=== PATIENT | female | born 1990 | race Caucasian/White ===

== ENCOUNTER 2020-02-05 17:36 | Emergency (ER) | payer OTHER, SELFPAY ==
--- NOTE | ~2020-02-05 | CT_ITS ---
EXAMINATION: CT abdomen pelvis w con EXAM DATE: 02/05/2020 18:57 INDICATION: Abdominal pain. TECHNIQUE: Spiral CT of the abdomen and pelvis was performed following intravenous injection of 100 m L Omnipaque 350. Axial, coronal and sagittal images were reviewed. The dose-length product (DLP) fo r this examination was 1206.78 mGy-cm. The exposure was tailored according to patient size (auto mA exposure control), and iterative reconstruction (ASIR) was used as additional dose reduction techniqu e. There is no prior study for comparison. FINDINGS: The liver, spleen, adrenal glands and pancreas are unremarkable. Gallbladder is unremarkab le. No biliary obstruction. Portal and splenic veins are patent. Kidneys enhance symmetrically. T here is no hydronephrosis. The uterus and ovaries are unremarkable, no adnexal mass. The bladder i s unremarkable. There is no retroperitoneal or pelvic lymphadenopathy. The appendix is normal. The stomach and small bowel are unremarkable. There is expected amount of c olonic stool. No free intraperitoneal gas. The heart is normal in size. There are no pericardial or pleural effusions. The lung bases are unremarkable. There are no significant osseous abnormalit ies identified. IMPRESSION: 1. Unremarkable CT abdomen pelvis examination. Reviewed, dictated and finalized at location A.
[2020-02-05 17:41] VITALS: BP 171/97; PULSE 98; RESP 18; TEMP 36.7; O2SAT 100
--- NOTE | 2020-02-05 18:01 | ED.ABDPAIN ---
HPI - Abdominal Pain General Chief Complaint: Abdominal Pain Stated Complaint: abd pain Time Seen by Provider: 02/05/20 18:00 Source: patient and RN notes reviewed Mode of arrival: ambulatory Limitations: no limitations History of Present Illness HPI narrative: Pt is a 29 y/o female who presents to the ED with c/o intermittent RUQ pain starting roughly 1 week ago. She notes that she was evaluated for her symptoms at her PCP, RAMSEY Jung's office on 02/01/20. Pt states that she received an US of her RUQ during the appointment, which showed no acute abnormalities. She notes that her pain has been intermittent since it first began, but states that her pain worsened earlier today. Pt reports nausea accompanying her pain, but denies any vomiting, diarrhea, fever, or chills. She states that she hasn't taken any pain medications for her symptoms. Pt notes that she has no significant PMHx. MD elicited complaint: abdominal pain Pertinent past history: none Onset (ago): week(s) (1) Pain Consistency: intermittent Location: RUQ Associated symptoms: nausea Related Data Allergies Allergy/AdvReac Type Severity Reaction Status Date / Time No Known Drug Allergies Allergy Unknown Verified 02/05/20 17:44 Review of Systems Review of Systems: All systems reviewed & are unremarkable except as noted in HPI and below Constitutional: Constitutional: Denies chills and Denies fever(s) Gastrointestinal: Gastrointestinal: Reports abdominal pain (RUQ pain), Denies diarrhea, Reports nausea and Denies vomiting PMFSH Past Medical History Medical History Healthy female adult Surgical History Surgical History Hx of section Social History Social History Smoking status: Never smoker Gender identity (if verbalized by the patient): Female Exam Narrative: Exam Narrative: APPEARANCE: No acute distress, nontoxic, resting in bed HEENT: Normocephalic, atraumatic, OMM RESPIRATORY: No respiratory distress, clear to auscultation bilaterally with no rhonchi wheezing or rales CARDIOVASCULAR: RRR s murmur ABDOMINAL: Soft, nondistended, tender palpation epigastric and right upper quadrant, no tenderness left upper quadrant, right lower quadrant left lower quadrant, no rebound or guarding MUSCULOSKELETAl: Moves all extremities. No clubbing, cyanosis or edema. NEURO: Awake and alert. Following commands, speech normal, no focal deficits SKIN:: Warm, dry. Normal Color PSYCHIATRIC: Normal affect/mood Course Course Emergency Course: Patient meets PERC rule criteria and no further testing needs to be performed for pulmonary embolism. Patient states that they are feeling much better at this time. States abdominal pain has improved. Repeat abdominal exam shows the patient's abdomen to be soft with no surgical abdomen present. Discussed with patient results of workup and diagnosis. Discussed need for follow-up with primary care physician, reasons to return to the emergency department in proper use of medication. Patient understands and agrees to current treatment plan Vital Signs Vital signs: Vital Signs Temperature 98.0 F 02/05/20 17:41 Pulse Rate 98 02/05/20 17:41 Respiratory Rate 18 02/05/20 17:41 Blood Pressure 171/97 H 02/05/20 17:41 Pulse Oximetry 100 02/05/20 17:41 Temperature 98.0 F 02/05/20 17:41 Pulse Rate 98 02/05/20 17:41 Respiratory Rate 18 02/05/20 17:41 Blood Pressure 171/97 H 02/05/20 17:41 Pulse Oximetry 100 02/05/20 17:41 MDM - Abdominal Pain MDM Narrative Medical decision making narrative: Patient's abdomen is soft without significant pain or signs of surgical abdomen on serial exams. Lab and x-ray evaluations are reviewed and patient is felt to be a reasonable candidate for outpatient management. Patient was instructed as to limitations of x-ray and laborator
[2020-02-05] MEDS: SODIUM CHLORIDE 0.9% IV 1,000 ML 999 ML IV CONT (18:16)
[2020-02-05] MEDS: ONDANSETRON INJ 4 MG/2 ML VIAL IV PUSH (18:17)
[2020-02-05] MEDS: KETOROLAC 30 MG/ML VIAL (*BKC) IV PUSH (18:17)
[2020-02-05 18:30] LABS: Basophils Absolute Auto 0.1 K/mm3 (0.0-0.1); Basophils Percent Auto 0.9 % (0.2-1.2); Eosinophils Absolute Auto 0.4 K/mm3 (0-0.3); Eosinophils Percent Auto 5.2 % (0-4.4); Hematocrit 42.2 % (37.0-47.0); Hemoglobin 13.9 g/dL (12.0-15.0); Immature Granulocyte Absolute 0.02 K/mm3 (0.00-0.031); Immature Granulocyte Percent A 0.2 % (0-0.5); Lymphocytes Absolute Auto 2.56 K/mm3 (0.9-3.2); Lymphocytes Percent Auto 30.2 % (18.3-44.2); Mean Corpuscular HGB Conc 32.9 g/dl (32-36); Mean Corpuscular Hemoglobin 30.2 pg (26-34); Mean Corpuscular Volume 91.7 fl (80-100); Mean Platelet Volume 9.3 fl (7.4-10.4); Monocytes Absolute Auto 0.6 K/mm3 (0.1-0.6); Monocytes Percent Auto 6.5 % (2.6-8.5); Neutrophils Absolute Auto 4.8 K/mm3 (1.3-6.7); Platelet Count Result 330 k/mm3 (150-375); Red Cell Distribution Width 12.9 % (11.5-14.5); White Blood Count 8.5 K/mm3 (4.5-10.0)
[2020-02-05 18:34] LABS: Add Urine Microscopic? YES; Appearance Urine Clear (Clear); Bacteria Urine Trace /hpf; Bilirubin Urine Negative (Negative); Blood Urine Negative (Negative); Color Urine Yellow (Yellow); Glucose Urine UA Negative (Negative); Ketones Urine Negative (Negative); Leukocyte Esterase Ur Negative LEU/UL (Negative); Mucus Urine Rare /lpf; Nitrate Urine Negative (Negative); Protein Urine Negative (Negative); RBC Urine 0-2 /hpf (0-2); Specific Grav Ur 1.021 (1.001-1.035); Squamous Epithelial Cell Urine Few /hpf (Few); Urobilinogen Urine Negative mg/dL (<2.0); WBC Urine 0-3 /hpf
[2020-02-05 18:41] LABS: Alanine Aminotransferase 18 U/L (4-35); Albumin Level 4.7 g/dL (3.5-5.1); Alkaline Phosphatase 61 U/L (38-126); Aspartate Amino Transferase 24 U/L (14-36); Bilirubin,Total 0.2 mg/dL (0.2-1.3); Blood Urea Nitrogen 13 mg/dL (7-17); Calcium 9.7 mg/dL (8.4-10.2); Carbon Dioxide 26 mmol/L (22-30); Chloride 105 mmol/L (98-107); Estimated CRCL calculation 122 ml/min; Estimated Glomerular Filt Rate > 60; Glucose 97 mg/dL (65-105); Lipase 84 U/L (23-300); Potassium 3.8 mmol/L (3.4-5.0); Sodium 139 mmol/L (137-145)
[2020-02-05 20:09] VITALS: BP 129/90; PULSE 76; RESP 16; TEMP 36.7; O2SAT 100
== END 2020-02-05 20:11 | disposition home or self-care (01) ==
PROVIDERS: Emergency Medicine; Emergency Provider Emergency Medicine; PCP Nurse Practitioner Adult Health
DX: R10.11 Right upper quadrant pain (principal)
CPT/HCPCS: 36415; 74177; 80053; 81001; 81025; 83690; 85025; 96361; 96374; 96375; 99284; J1885; J2405; J7030; Q9967

== ENCOUNTER 2020-06-20 03:09 | Emergency (ER) | payer OTHER, SELFPAY ==
[2020-06-20 03:10] VITALS: BP 146/93; PULSE 113; RESP 15; TEMP 37.6; O2SAT 100
--- NOTE | 2020-06-20 03:16 | ED.ABDPAIN ---
HPI - Abdominal Pain General Chief Complaint: Abdominal Pain Stated Complaint: abd pain Time Seen by Provider: 06/20/20 03:12 History of Present Illness HPI narrative: Severe RUQ abdominal pain for the past few hours. Stabbing in quality. No radiation. Associated with nausea. No vomiting, diarrhea, fever. She has had this pain before. She has had a RUQ US, abdominal CT, and labs which were all normal. Related Data Allergies Allergy/AdvReac Type Severity Reaction Status Date / Time No Known Drug Allergies Allergy Unknown Verified 06/20/20 03:13 Review of Systems Review of Systems: All systems reviewed & are unremarkable except as noted in HPI and below Constitutional: Constitutional: Denies fever(s) Cardiovascular: Cardiovascular: Denies chest pain Respiratory: Respiratory: Denies dyspnea Gastrointestinal: Gastrointestinal: Reports abdominal pain, Denies constipation, Denies diarrhea, Reports nausea and Denies vomiting Genitourinary: Genitourinary: Denies hematuria and Denies dysuria Musculoskeletal: Musculoskeletal: Reports back pain Neurologic: Denies numbness and Denies weakness FORMERLY [facility] Past Medical History Medical History Healthy female adult Surgical History Surgical History Hx of section Social History Social History Smoking status: Never smoker Gender identity (if verbalized by the patient): Female Exam Const: General: healthy appearing, no acute distress and alert Orientation/consciousness: patient oriented x3 HENMT: Head: normal to inspection Neck: Neck: normal visual inspection and no lymphadenopathy Chest: Chest palpation & inspection: no tenderness Resp: Effort & Inspection: normal respiratory effort Auscultation: clear to auscultation bilaterally, no rales, no rhonchi and no wheezes Cardio: Jugular venous distension: no JVD Rate: regular rate Rhythm: regular rhythm Heart sounds: no murmurs GI: Inspection: non-distended GI Palp: Yes Soft to palpation, Yes Tenderness to palpation present (GI) (RUQ), Yes Guarding due to palpation present (GI) and No Rebound tenderness present Skin: General skin exam: normal color Neuro: General: patient oriented x3 and moves all extremities Speech: normal speech Extrem: General: no edema Psych: Appearance: well kempt Affect: normal affect Course Vital Signs Vital signs: Vital Signs Temperature 37.6 C 06/20/20 03:10 Pulse Rate 113 H 06/20/20 03:10 Respiratory Rate 15 06/20/20 03:10 Blood Pressure 146/93 H 06/20/20 03:10 Pulse Oximetry 100 06/20/20 03:10 Temperature 37.6 C 06/20/20 03:10 Pulse Rate 74 06/20/20 04:50 Respiratory Rate 18 06/20/20 04:50 Blood Pressure 127/89 06/20/20 04:50 Pulse Oximetry 98 06/20/20 04:50 MDM - Abdominal Pain MDM Narrative Medical decision making narrative: Chart review reveals completely negative past work-up. I will try symptomatic treatment and reevaluate. Symptoms greatly improved. She will need GI follow-up Medical Records Attestation: I reviewed the patient's medical records. Lab Data Attestation: I reviewed the patient's lab results. Result diagrams: 06/20/20 03:37 06/20/20 03:37 Labs: Lab Results 06/20/20 06/20/20 06/20/20 Range/Units 03:37 03:37 03:39 WBC 7.7 (4.5-10.0) K/mm3 RBC 4.63 (4.2-5.4) M/mm3 Hgb 14.3 (12.0-15.0) g/dL Hct 42.2 (37.0-47.0) % MCV 91.1 (80-100) fl MCH 30.9 (26-34) pg MCHC 33.9 (32-36) g/dl RDW 12.6 (11.5-14.5) % Plt Count 303 (150-375) k/mm3 MPV 9.2 (7.4-10.4) fl Immature Gran % (Auto) 0.3 (0-0.5) % Neut % (Auto) 52.8 (45.5-73.1) % Lymph % (Auto) 35.8 (18.3-44.2) % [place] % (Auto) 6.5 (2.6-8.5) % Eos % (Auto) 4.1 (0-4.4) % Baso % (Auto) 0.5
[2020-06-20] MEDS: DICYCLOMINE HCL INJ 20 MG/2 ML VIAL IM (03:39)
[2020-06-20] MEDS: SODIUM CHLORIDE 0.9% IV 1,000 ML 999 ML IV CONT (03:40)
[2020-06-20 03:45] LABS: Basophils Percent Auto 0.5 % (0.2-1.2); Eosinophils Absolute Auto 0.3 K/mm3 (0-0.3); Eosinophils Percent Auto 4.1 % (0-4.4); Hematocrit 42.2 % (37.0-47.0); Hemoglobin 14.3 g/dL (12.0-15.0); Immature Granulocyte Absolute 0.02 K/mm3 (0.00-0.031); Immature Granulocyte Percent A 0.3 % (0-0.5); Lymphocytes Absolute Auto 2.77 K/mm3 (0.9-3.2); Lymphocytes Percent Auto 35.8 % (18.3-44.2); Mean Corpuscular HGB Conc 33.9 g/dl (32-36); Mean Corpuscular Hemoglobin 30.9 pg (26-34); Mean Corpuscular Volume 91.1 fl (80-100); Mean Platelet Volume 9.2 fl (7.4-10.4); Monocytes Absolute Auto 0.5 K/mm3 (0.1-0.6); Monocytes Percent Auto 6.5 % (2.6-8.5); Neutrophils Absolute Auto 4.1 K/mm3 (1.3-6.7); Neutrophils Percent Auto 52.8 % (45.5-73.1); Platelet Count Result 303 k/mm3 (150-375); Red Blood Count 4.63 M/mm3 (4.2-5.4); Red Cell Distribution Width 12.6 % (11.5-14.5); White Blood Count 7.7 K/mm3 (4.5-10.0)
[2020-06-20 04:02] LABS: Alanine Aminotransferase 17 U/L (4-35); Albumin Level 4.8 g/dL (3.5-5.1); Alkaline Phosphatase 61 U/L (38-126); Anion Gap 6 mmol/L (8-16); Aspartate Amino Transferase 28 U/L (14-36); Bilirubin,Total 0.4 mg/dL (0.2-1.3); Blood Urea Nitrogen 18 mg/dL (7-17); Calcium 9.6 mg/dL (8.4-10.2); Carbon Dioxide 28 mmol/L (22-30); Chloride 104 mmol/L (98-107); Estimated Glomerular Filt Rate > 60; Glucose 96 mg/dL (65-105); Lipase 103 U/L (23-300); Sodium 138 mmol/L (137-145)
[2020-06-20 04:13] LABS: Appearance Urine Clear (Clear); Bilirubin Urine Negative (Negative); Blood Urine Negative (Negative); Color Urine Yellow (Yellow); Glucose Urine UA Negative (Negative); Ketones Urine Negative (Negative); Leukocyte Esterase Ur Negative LEU/UL (Negative); Nitrate Urine Negative (Negative); Protein Urine Negative (Negative); Specific Grav Ur >= 1.030 (1.001-1.035); Urobilinogen Urine 0.2 mg/dL (<2.0)
[2020-06-20 04:18] LABS: Add Urine Microscopic? NO
[2020-06-20 04:50] VITALS: BP 127/89; PULSE 74; RESP 18; O2SAT 98
== END 2020-06-20 04:51 | disposition home or self-care (01) ==
PROVIDERS: Emergency Provider Emergency Medicine; PCP Nurse Practitioner Adult Health
DX: R10.11 Right upper quadrant pain (principal)
CPT/HCPCS: 36415; 80053; 81003; 83690; 85025; 96360; 96372; 99283; J0500; J7030

== ENCOUNTER → 2021-03-31 09:57 | Outpatient (CLI) | payer OTHER, SELFPAY ==
--- NOTE | ~2021-03-31 | CT_ITS ---
EXAMINATION: CT abdomen pelvis wo con DATE: 03/31/2021 10:10 INDICATION: Right lower quadrant abdominal pain and right flank pain. TECHNIQUE: Computed tomography (CT) of the abdomen and pelvis was performed without intravenous contr ast. Automated exposure control and iterative reconstruction technique were employed. The dose-length product was 947.10 mGy-cm. COMPARISON: 02/05/2020 FINDINGS: Lung bases are clear. Heart size is normal. No pericardial or pleural effusion. Small sliding-type hi atal hernia. Liver, gallbladder, pancreas and bilateral adrenal glands are normal. Unchanged small sp lenic lesion with partial rim calcification likely sequela of chronic trauma or infection. Kidneys an d ureters are normal with no urolithiasis, hydroureteronephrosis or perinephric/ureteral stranding. N o free intraperitoneal gas or fluid. Bowels including the appendix are normal. Bladder, anteverted ut erus and bilateral adnexa are unremarkable. No pathologically enlarged abdominal or pelvic lymphadeno kevin. Mild lumbar levocurvature with mild spondylosis. IMPRESSION: 1. No acute intra-abdominal/pelvic process. Reviewed, dictated and finalized at location A.
== END ==
PROVIDERS: PCP Nurse Practitioner Adult Health; Visit Provider Nurse Practitioner Adult Health
DX: R10.31 Right lower quadrant pain (principal)
CPT/HCPCS: 74176

== ENCOUNTER 2021-07-25 12:14 | Emergency (ER) | payer OTHER, SELFPAY ==
--- NOTE | 2021-07-25 12:16 | ED.EAR ---
HPI - Ear Problem General Chief complaint: Ear Stated complaint: rt ear clogged Time Seen by Provider: 07/25/21 12:17 Source: patient and RN notes reviewed History of Present Illness HPI Narrative: Patient is a 31-year-old female presents the urgent care complaints of decreased hearing due to clogging in the right ear. Patient states she noticed it Tuesday evening has tried to remove the earwax with scoops and used [id number] earache drops. Patient denies of any pain or other upper respiratory complaints. No other acute complaints. No acute distress noted. Patient aware of the plan of care. Some parts of this dictation were generated by voice recognition software and may contain typographical and/or grammatical inaccuracies. Related Data Home Medications Medication Instructions Recorded Confirmed No Home Medications 07/25/21 07/25/21 Allergies Allergy/AdvReac Type Severity Reaction Status Date / Time No Known Drug Allergies Allergy Unknown Verified 07/25/21 12:19 Review of Systems Review of Systems: CONSTITUTIONAL: Denies fever, chills, or sweats. EYES: Denies visual changes, redness, or discharge. ENT: Denies rhinorrhea, congestion, sore throat. Reports of decreased hearing on the right CARDIOVASCULAR: Denies chest pain, palpitations, or edema. RESPIRATORY: Denies cough or dyspnea. GASTROINTESTINAL: Denies abdominal pain, nausea, vomiting, or diarrhea. GENITOURINARY: Denies dysuria or hematuria. SKIN: Denies rash or itching. MUSCULOSKELETAL: Denies back pain, joint pain, or myalgia. NEUROLOGIC: Denies headache, numbness, or weakness. All other systems reviewed are negative, except as documented in HPI. FOR[facility]LY [facility], [facility] Past Medical History Medical History (Updated 07/25/21 @ 12:45 by BRENDA Zuluaga) Healthy female adult Surgical History Surgical History Hx of section Social History Social History Smoking status: Never smoker Gender identity (if verbalized by the patient): Female Comments At the time of my signature, I reviewed and agree with the nursing past medical, surgical, social, and family history. There is no relevant family history pertinent to the patient complaint. Exam Narrative: GENERAL: This is a well-nourished, well-developed patient, in no apparent distress. HEAD: normocephalic, atraumatic. EYES: PERRL. Sclera clear/white. Vision is grossly intact. EARS: External ears normal, auditory canals clear and without drainage, unable to visualize right TM due to cerumen impaction, left TM normal without perforation. Hearing grossly intact. NOSE: External nose normal with no obvious nasal discharge, nares without redness, no rhinorrhea. THROAT: Mucous membranes moist NECK: Neck supple CARDIOVASCULAR: Regular rate and rhythm without murmurs, gallops, or rubs. RESPIRATORY: Clear to auscultation. Breath sounds equal bilaterally. No wheezes, rales, or rhonchi. SKIN: warm, intact with no suspicious lesions or rash, good texture and turgor. NEURO: awake, alert, and oriented to person, place and time. There were no obvious focal neurologic abnormalities. EXTREMITIES: No clubbing, cyanosis, or edema. Course Vital Signs Vital signs: Vital Signs Temperature 97.1 F L 07/25/21 12:33 Pulse Rate 114 H 07/25/21 12:33 Respiratory Rate 18 07/25/21 12:33 Blood Pressure 141/93 H 07/25/21 12:33 Pulse Oximetry 99 07/25/21 12:33 Temperature 97.1 F L 07/25/21 12:33 Pulse Rate 114 H 07/25/21 12:33 Respiratory Rate 18 07/25/21 12:33 Blood Pressure 141/93 H 07/25/21 12:33 Pulse Oximetry 99 07/25/21 12:33 Reviewed-patient is informed that they may have pre-hypertension or hypertension based on a blood pressure reading in the department. I recommend the patient call the primary care provider listed on their discharge instructions or a physician of the
[2021-07-25 12:33] VITALS: BP 141/93; PULSE 114; RESP 18; TEMP 36.2; O2SAT 99
== END 2021-07-25 12:50 | disposition home or self-care (01) ==
PROVIDERS: Emergency Provider Nurse Practitioner Family; PCP Nurse Practitioner Adult Health
DX: H61.21 Impacted cerumen, right ear (principal)
CPT/HCPCS: 69209; 99212; G0463

== ENCOUNTER 2021-08-18 20:09 | Emergency (ER) | payer OTHER, SELFPAY ==
[2021-08-18 20:24] VITALS: BP 155/94; PULSE 102; RESP 18; TEMP 36.7; O2SAT 100
[2021-08-18 21:04] VITALS: BP 138/97; PULSE 98; RESP 18; TEMP 37; O2SAT 100
--- NOTE | 2021-08-19 00:02 | ED.GENADULT ---
HPI - General Adult General Chief complaint: Wound/Laceration Stated complaint: blisters on right foot Time Seen by Provider: 08/18/21 23:40 History of Present Illness HPI narrative: Patient 31-year-old female presents to the emergency department with chief complaint of insect bite to right ankle. The patient states she was bit by an insect on her right ankle today and started having itching and burning and noticed that she started having blisters developing on the posterior aspect of her right ankle. Patient states the area is slightly red reports there is clear fluid leaking out of the blisters denies any other injuries denies shortness of breath denies chest pain denies urticaria. Related Data Allergies Allergy/AdvReac Type Severity Reaction Status Date / Time No Known Drug Allergies Allergy Unknown Verified 08/18/21 21:08 Review of Systems Review of Systems: A 10 system review of systems was completed on the patient and is negative except for what is stated in the HPI. Nursing and ancillary documentation was reviewed. [facility] Past Medical History Medical History (Updated 08/19/21 @ 00:06 by Lauro Cooper MD) Healthy female adult Surgical History Surgical History Hx of section Social History Social History Smoking status: Never smoker Gender identity (if verbalized by the patient): Female Exam Narrative: GENERAL: Well-appearing, well-nourished, and in no acute distress. HEAD: Normocephalic, atraumatic. EYES: PERRLA and EOMI. ENT: Nares clear, no rhinorrhea or epistaxis. Mucous membranes moist. NECK: Supple. CHEST: Clear to auscultation. No respiratory distress. HEART: Regular rate and rhythm. No murmur heard. Normal peripheral pulses. ABDOMEN: Soft, nontender, nondistended, normal active bowel sounds. EXTREMITIES: Normal range of motion. No edema. SKIN: Warm, dry, there are blisters present in the posterior aspect of the right ankle there is slight erythema.. NEURO: No focal deficits. Alert and oriented x3. PSYCH: Normal mood and affect. Course Vital Signs Vital signs: Vital Signs Temperature 36.7 C 08/18/21 20:24 Pulse Rate 102 H 08/18/21 20:24 Respiratory Rate 18 08/18/21 20:24 Blood Pressure 155/94 H 08/18/21 20:24 Pulse Oximetry 100 08/18/21 20:24 Temperature 37.0 C 08/18/21 21:04 Pulse Rate 98 08/18/21 21:04 Respiratory Rate 18 08/18/21 21:04 Blood Pressure 138/97 H 08/18/21 21:04 Pulse Oximetry 100 08/18/21 21:04 Medical Decision Making Vital Signs Vital Signs: Vital Signs Temperature 36.7 C 08/18/21 20:24 Pulse Rate 102 H 08/18/21 20:24 Respiratory Rate 18 08/18/21 20:24 Blood Pressure 155/94 H 08/18/21 20:24 Pulse Oximetry 100 08/18/21 20:24 Temperature 37.0 C 08/18/21 21:04 Pulse Rate 98 08/18/21 21:04 Respiratory Rate 18 08/18/21 21:04 Blood Pressure 138/97 H 08/18/21 21:04 Pulse Oximetry 100 08/18/21 21:04 Discharge Plan Discharge Clinical Impression: Infected insect bite of right ankle Qualifiers: Encounter type: initial encounter Qualified Code(s): S90.561A - Insect bite (nonvenomous), right ankle, initial encounter Patient Disposition: Home, Self-Care Condition: Stable Instructions: Antibiotic Form, Cellulitis (ED), Insect Bite or Sting (ED) Prescriptions: New prednisone 20 mg tablet 40 mg PO DAILY 5 Days Qty: 10 RF: 0 clindamycin HCl 300 mg capsule 300 mg PO Q6H 7 Days Qty: 28 RF: 0 Follow-up/Referrals: Ismael,RAMSEY Jin [Primary Care Provider] - Time of Disposition: 00:06
[2021-08-19] MEDS: predniSONE 20 MG TABLET 40 MG PO (00:14)
[2021-08-19] MEDS: CLINDAMYCIN HCL 150 MG CAP 300 MG PO (00:14)
[2021-08-19 00:21] VITALS: BP 146/91; PULSE 83; RESP 18; O2SAT 100
== END 2021-08-19 00:23 | disposition home or self-care (01) ==
PROVIDERS: Emergency Provider Emergency Medicine; PCP Nurse Practitioner Adult Health
DX: S90.561A Insect bite (nonvenomous), right ankle, initial encounter (principal); W57.XXXA Bitten or stung by nonvenomous insect and other nonvenomous arthropods, initial encounter
CPT/HCPCS: 99283; A9270; J7512

== ENCOUNTER 2022-05-02 10:50 | Emergency (ER) | payer OTHER, SELFPAY ==
[2022-05-02 11:08] VITALS: BP 155/96; PULSE 104; RESP 16; TEMP 37.2; O2SAT 100
--- NOTE | 2022-05-02 11:24 | ED.GENADULT ---
HPI - General Adult General Chief complaint: Ear Stated complaint: ear inf History of Present Illness HPI narrative: Patient is a 31-year-old female presents to the urgent care via POV for evaluation of a low ear problem that began 10 days ago. Additionally, she reports muffled hearing and feels as if her ear is clogged . She had a visit with her PCP on 04/21/2022 and prescribed an oral antibiotic and steroids at that time. She followed up with her PCP on 04/27/22 and dx with swimmer's ear. At that time she was prescribed an otic antibiotic. There has been no improvement with treatment provided by her PCP prompting today's visit. Related Data Home Medications Medication Instructions Recorded Confirmed No Home Medications 05/02/22 05/02/22 Allergies Allergy/AdvReac Type Severity Reaction Status Date / Time No Known Drug Allergies Allergy Unknown Verified 05/02/22 11:07 FORMERLY [facility] Past Medical History Medical History Healthy female adult Surgical History Surgical History Hx of section Social History Social History Smoking status: Never smoker Gender identity (if verbalized by the patient): Female Comments I have reviewed and agree with the patient's past medical, surgical, social, and family hx as documented by the RN. There is no relevant family history pertinent to the presenting complaint. Exam Narrative: GENERAL: Well-appearing, well-nourished, and in no acute distress. HEAD: Normocephalic, atraumatic. No sinus tenderness or facial swelling appreciated. EYES: PERRLA and EOMI. No evidence of erythema, swelling, or drainage. ENT: Bilateral external ears and ear canals normal. Left TM appears moderately erythematous. Right TM appears normal. Neuro TM perforation. Nares clear, no rhinorrhea or epistaxis. Bilateral turbinates without erythema/ swelling. Mucous membranes moist and pink. Uvula is midline without erythema and swelling. No evidence of petechial rash, cobblestoning, lesions, ulcers, erythema, swelling, exudates, peritonsillar abscess, tenting, or drooling. Breath odor and voice normal. NECK: Supple. No Lymphadenopathy or nuchal rigidity appreciated. CHEST: Bilateral lung tavarez are clear to auscultation. No respiratory distress. No evidence of cough or pleuritic cp upon examination. HEART: Tachycardia with a rate of 104. Regular rhythm. No murmur, gallop, or rub heard. EXTREMITIES: Normal range of motion. No edema. SKIN: Warm, dry, no rash. NEURO: No focal deficits. Alert and oriented x3. Course Course Level of Care: Express Care Visit Vital Signs Vital signs: Vital Signs Temperature 99 F 05/02/22 11:08 Pulse Rate 104 H 05/02/22 11:08 Respiratory Rate 16 05/02/22 11:08 Blood Pressure 155/96 H 05/02/22 11:08 Pulse Oximetry 100 05/02/22 11:08 Temperature 99 F 05/02/22 11:08 Pulse Rate 104 H 05/02/22 11:08 Respiratory Rate 16 05/02/22 11:08 Blood Pressure 155/96 H 05/02/22 11:08 Pulse Oximetry 100 05/02/22 11:08 Medical Decision Making Differential Diagnosis Differential Diagnosis: Otitis externa, barotrauma, eustachian tube dysfunction, AOM, OME, herpes zoster infection, acute mastoiditis, malignancy Vital Signs Vital Signs: Vital Signs Temperature 99 F 05/02/22 11:08 Pulse Rate 104 H 05/02/22 11:08 Respiratory Rate 16 05/02/22 11:08 Blood Pressure 155/96 H 05/02/22 11:08 Pulse Oximetry 100 05/02/22 11:08 Temperature 99 F 05/02/22 11:08 Pulse Rate 104 H 05/02/22 11:08 Respiratory Rate 16 05/02/22 11:08 Blood Pressure 155/96 H 05/02/22 11:08 Pulse Oximetry 100 05/02/22 11:08 Due to an elevated blood pressure, I had a detailed discussion with the patient and/or guardian regarding the need for follow-up with their pr
== END 2022-05-02 11:54 | disposition home or self-care (01) ==
PROVIDERS: Emergency Provider Nurse Practitioner Family; PCP Nurse Practitioner Adult Health
DX: H69.92 Unspecified Eustachian tube disorder, left ear (principal)
CPT/HCPCS: 99211; G0463

== ENCOUNTER 2022-09-10 20:51 | Emergency (ER) | payer OTHER, SELFPAY ==
--- NOTE | ~2022-09-10 | CT_ITS ---
EXAMINATION: CT abdomen pelvis wo con DATE: 09/11/2022 02:04 INDICATION: Right upper quadrant abdominal pain, nausea TECHNIQUE: Computed tomography (CT) of the abdomen and pelvis was performed without intravenous contr ast. Automated exposure control and iterative reconstruction technique were employed. Exam dose: 110 2.43 mGy-cm total exam DLP. COMPARISON: 03/31/2021 CT abdomen pelvis FINDINGS: Lung bases are clear. Normal heart size. No pericardial or pleural effusion. Small sliding hiatal hernia. The liver, gallbladder, bile ducts, pancreas and pancreatic duct are normal. Normal splenic size. Scotty ign focal splenic calcification. Normal morphology of the adrenal glands. No renal mass lesion. No urinary tract obstruction or hydroureteronephrosis. The urinary bladder, sherry poppy and adnexal areas are unremarkable except for approximately 4 cm probable right ovarian cyst.. Normal appendix. No bowel obstruction, bowel wall thickening, pneumatosis or intraperitoneal free air . Small fat-containing umbilical hernia. Included skeletal structures are unremarkable. IMPRESSION: Probable 4 cm right ovarian cyst; consider pelvic ultrasound correlation Normal appendix Small sliding hiatal hernia Reviewed, dictated and finalized at Location [facility]. Reviewed, dictated and finalized at location A. IMPRESSION: Probable 4 cm right ovarian cyst; consider pelvic ultrasound corre lation Normal appendix Small sliding hiatal hernia
[2022-09-10 20:53] VITALS: BP 161/91; PULSE 99; RESP 16; TEMP 37.1; O2SAT 100
[2022-09-10 23:26] LABS: Appearance Urine Clear (Clear); Basophils Absolute Auto 0.1 K/mm3 (0.0-0.1); Basophils Percent Auto 0.7 % (0.2-1.2); Bilirubin Urine Negative (Negative); Blood Urine 3+ (Negative); Color Urine Yellow (Yellow); Eosinophils Absolute Auto 0.2 K/mm3 (0-0.3); Eosinophils Percent Auto 1.7 % (0-4.4); Glucose Urine UA Negative (Negative); Hematocrit 41.4 % (37.0-47.0); Hemoglobin 13.8 g/dL (12.0-15.0); Immature Granulocyte Absolute 0.01 K/mm3 (0.00-0.031); Immature Granulocyte Percent A 0.1 % (0-0.5); Ketones Urine 1+ mg/dL (Negative); Leukocyte Esterase Ur Negative LEU/UL (Negative); Lymphocytes Absolute Auto 2.27 K/mm3 (0.9-3.2); Lymphocytes Percent Auto 26.1 % (18.3-44.2); Mean Corpuscular HGB Conc 33.3 g/dl (32-36); Mean Corpuscular Hemoglobin 29.7 pg (26-34); Mean Corpuscular Volume 89.2 fl (80-100); Mean Platelet Volume 8.9 fl (7.4-10.4); Monocytes Absolute Auto 0.6 K/mm3 (0.1-0.6); Monocytes Percent Auto 7.2 % (2.6-8.5); Neutrophils Absolute Auto 5.6 K/mm3 (1.3-6.7); Neutrophils Percent Auto 64.2 % (45.5-73.1); Nitrate Urine Negative (Negative); Platelet Count Result 312 k/mm3 (150-375); Protein Urine Negative (Negative); Red Blood Count 4.64 M/mm3 (4.2-5.4); Red Cell Distribution Width 13.5 % (11.5-14.5); Specific Grav Ur 1.025 (1.001-1.035); Urobilinogen Urine 0.2 mg/dL (<2.0); White Blood Count 8.7 K/mm3 (4.5-10.0); pH Urine 5.5 (5.0-9.0)
[2022-09-10 23:28] LABS: Bacteria Urine Trace /hpf; Mucus Urine Rare /lpf; RBC Urine 0-2 /hpf (0-2); Squamous Epithelial Cell Urine Rare /hpf (Few); WBC Urine 0-3 /hpf
[2022-09-10 23:29] LABS: Add Urine Microscopic? YES
[2022-09-10 23:35] LABS: Alanine Aminotransferase 21 U/L (6-35); Albumin Level 4.8 g/dL (3.5-5.1); Alkaline Phosphatase 66 U/L (38-126); Anion Gap 12 mmol/L (8-16); Aspartate Amino Transferase 25 U/L (14-36); Bilirubin,Total 0.5 mg/dL (0.2-1.3); Blood Urea Nitrogen 11 mg/dL (7-17); Calcium 9.2 mg/dL (8.4-10.2); Carbon Dioxide 24 mmol/L (22-30); Chloride 105 mmol/L (98-107); Estimated CRCL calculation 121 ml/min; Estimated Glomerular Filt Rate > 60; Glucose 96 mg/dL (65-110); Lipase 106 U/L (23-300); Potassium 3.6 mmol/L (3.4-5.0); Sodium 141 mmol/L (137-145)
[2022-09-10 23:51] VITALS: O2SAT 100
[2022-09-10 23:52] VITALS: BP 153/97; O2SAT 100
--- NOTE | 2022-09-10 23:53 | PC.NURSE ---
patient state she has right upper abdominal pain that started while she was hanging curtains states today she was nauseated really bad as well. states standing up and moving make it worse when she sits down she feels ok
[2022-09-11] VITALS (15 sets, daily range): BP systolic 120–161; BP diastolic 72–93; O2SAT 96–100
--- NOTE | 2022-09-11 00:07 | ED.ABDPAIN ---
HPI - Abdominal Pain General Chief Complaint: Abdominal Pain Stated Complaint: RUQ pain, nausea Time Seen by Provider: 09/10/22 23:47 Source: patient Mode of arrival: ambulatory Limitations: no limitations History of Present Illness HPI narrative: This is a 32 year old female who presents for evaluation of nausea and right upper abdominal pain. Patient has been having intermittent nonradiating right upper abdominal pain. She states today she was reaching up when she developed severe nausea and right upper abdominal pain. She reports her pain is bearable but her nausea is severe. She denies pain worse with eating. She rates her pain 4/10. She denies vomiting, fever, or diarrhea. She denies dysuria or hematuria. She just started her menstrual cycle today. Related Data Allergies Allergy/AdvReac Type Severity Reaction Status Date / Time No Known Drug Allergies Allergy Unknown Verified 09/10/22 20:52 Review of Systems Review of Systems: All systems reviewed & are unremarkable except as noted in HPI and below Constitutional: Constitutional: Denies chills, Denies fatigue and Denies fever(s) Cardiovascular: Cardiovascular: Denies chest pain and Denies rapid heart rate Gastrointestinal: Gastrointestinal: Reports abdominal pain, Denies diarrhea, Reports nausea and Denies vomiting Genitourinary: Genitourinary: Denies hematuria and Denies dysuria Musculoskeletal: Musculoskeletal: Denies back pain PMFSH Past Medical History Medical History (Updated 09/11/22 @ 04:23 by Emely Conde MD) Healthy female adult Surgical History Surgical History Hx of section Social History Social History Smoking status: Never smoker Alcohol intake: never Substance use: never Gender identity (if verbalized by the patient): Female Exam Const: General: no acute distress and alert Nutritional Appearance: well nourished Orientation/consciousness: patient oriented x3 HENMT: Head: normal to inspection Eyes: EOM: EOMs intact bilaterally Resp: Effort & Inspection: normal respiratory effort Auscultation: clear to auscultation bilaterally Cardio: Rate: regular rate Rhythm: regular rhythm Heart sounds: no murmurs GI: GI Palp: Yes Soft to palpation, No Tenderness to palpation present (GI), No Guarding due to palpation present (GI) and No Rigid due to palpation Auscultation: normal bowel sounds Back/Spine/Pelvis: Back: no CVA tenderness Skin: General skin exam: normal color Rashes: no rashes Wounds: no wounds Neuro: General: patient oriented x3, moves all extremities and CN's II-XI intact bilaterally Extrem: General: normal to inspection Psych: Mental Status: mental status grossly normal Affect: normal affect Attitude: cooperative Course Reevaluation(s) Reevaluation #1: Patient's pain has resolved. I discussed with her CT showing right ovarian cyst. 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 Result diagrams: 09/10/22 23:19 09/10/22 23:19 Labs: Lab Results 09/10/22 09/10/22 09/10/22 Range/Units 23:19 23:19 23:19 WBC 8.7 (4.5-10.0) K/mm3 RBC 4.64 (4.2-5.4) M/mm3 Hgb 13.8 (12.0-15.0) g/dL Hct 41.4 (37.0-47.0) % MCV
[2022-09-11] MEDS: ONDANSETRON INJ 4 MG/2 ML VIAL IV PUSH (00:09)
[2022-09-11] MEDS: SODIUM CHLORIDE 0.9% IV 1,000 ML 999 ML IV CONT (00:09)
[2022-09-11] MEDS: KETOROLAC 15 MG/ML VIAL (*BKC) IV PUSH (00:09)
[2022-09-11] MEDS: PROMETHAZINE HCL 25 MG/ML AMPUL 12.5 MG IV PUSH (03:24)
== END 2022-09-11 04:33 | disposition home or self-care (01) ==
PROVIDERS: Emergency Provider General Practice; PCP Nurse Practitioner Adult Health
DX: N83.201 Unspecified ovarian cyst, right side (principal); R11.0 Nausea
CPT/HCPCS: 36415; 74176; 80053; 81001; 81025; 83690; 85025; 96361; 96374; 96375; 99284; J1885; J2405; J2550; J7030